=== PATIENT | female | born 1985 | race Two or more races ===

== ENCOUNTER 2019-03-03 20:28 | Inpatient (IN) | payer BC ==
[~2019-03-03] VITALS: Ht 165.1 cm; Wt 66.7 kg
--- NOTE | 2019-03-03 20:46 | NUR ---
patient brought in by ambulance. According to report, patient was found at home with empy medication bottles of lorazepam, effexor and propanolol at bedside with empty wine bottle. Upon arrival, patietn vital signs are the following: BP 121/78, HR 75, spo2 98%, RR 15. patient is confused but responsive to verbal stimuli. patient stated verbally "I want to . I want to fucking ." Dr. Anderson at bedside for evaluation of the patient. patient boyfriend at bedside.
--- NOTE | 2019-03-03 20:49 | NUR ---
Contacted posion control
--- NOTE | 2019-03-03 20:51 | NUR ---
business enterprise officer at bedside to speak to the patient.
[2019-03-03] MEDS ORDERED: IV NORMAL SALINE 1000 ML BAG IV ONE (21:00)
--- NOTE | 2019-03-03 21:05 | NUR ---
security at bedside for stand by 1:1 sitter
--- NOTE | 2019-03-03 21:12 | NUR ---
Called posion control. Spoke to Vi. Instructed to monitor for hypotension,hypoglycemia,place on seizure precaution.
--- NOTE | 2019-03-03 21:14 | NUR ---
SARAH [id number] [place] [facility] into interview patient.
[2019-03-03 21:16] LABS: BASOPHILS # (AUTO) 0.1 K/uL (0.0-8.0); EOSINOPHILS # (AUTO) 0.1 K/uL (0.0-0.7); EOSINOPHILS % (AUTO) 0.6 % (0.0-7.0); HEMATOCRIT 39.9 % (31.2-41.9); HEMOGLOBIN 13.5 g/dL (10.9-14.3); LYMPHOCYTES # (AUTO) 3.3 K/uL (20.0-40.0); LYMPHOCYTES % (AUTO) 38.3 % (20.5-51.5); MEAN CORPUSCULAR HEMOGLOBIN 32.5 uug (24.7-32.8); MEAN CORPUSCULAR HGB CONC 34 g/dL (32.3-35.6); MEAN CORPUSCULAR VOLUME 96.2 fL (75.5-95.3); MONOCYTES # (AUTO) 0.7 K/uL (2.0-10.0); MONOCYTES % (AUTO) 8.2 % (0.0-11.0); NEUTROPHILS # (AUTO) 4.5 K/uL (1.8-8.9); NEUTROPHILS % (AUTO) 51.9 % (38.5-71.5); PLATELET COUNT (AUTO) 404 K/uL (179-408); RED BLOOD CELL COUNT(AUTO) 4.15 MIL/uL (3.63-4.92); WHITE BLOOD COUNT (AUTO) 8.7 K/uL (3.8-11.8)
[2019-03-03 21:20] LABS: CARBON DIOXIDE 26 mmol/L (21-32); CHLORIDE 104 mmol/L (98-107); CREATININE 0.7 mg/dL (0.6-1.3); GLUCOSE 101 mg/dL (74-106); POTASSIUM 3.5 mmol/L (3.5-5.1); UREA NITROGEN, BLOOD 11 mg/dL (7-18)
--- NOTE | 2019-03-03 21:25 | NUR ---
patient removed IV. New IV has been placed. R AC 20G
[2019-03-03 21:27] LABS: ACETAMINOPHEN < 2.0 ug/mL (10-30); ALANINE AMINOTRANSFERASE 28 U/L (14-59); ALKALINE PHOSPHATASE 85 U/L (50-136); ASPARTATE AMINOTRANSFERASE 20 U/L (15-37); BILIRUBIN,DIRECT 0.1 mg/dL (0.0-0.2); BILIRUBIN,TOTAL 0.1 mg/dL (0.2-1.0); CREATINE KINASE, TOTAL 87 U/L (26-192); TOTAL PROTEIN, SERUM 7.7 g/dL (6.4-8.2)
[2019-03-03 21:38] LABS: ETHANOL 302 MG/DL (0-0)
--- NOTE | 2019-03-03 21:56 | NUR ---
critical lab reported to MD: ETOH 0.30 and Lactic Acid of 2.0. Dr. Justin naranjo.
[2019-03-03 22:19] LABS: *BILIRUBIN,URIN NEGATIVE (NEGATIVE); *CLARITY,URINE CLEAR (CLEAR); *COLOR,URINE YELLOW (YELLOW); *KETONES,URINE NEGATIVE (NEGATIVE); *URINE HCG, QUAL NEGATIVE (NEGATIVE); *UROBILINOGEN,URINE 0.2 E.U./dl (NORMAL); LEUKOCYTE ESTERASE ,URINE NEGATIVE (NEGATIVE); NITRITE, URINE NEGATIVE (NEGATIVE); UGLUCOSE NEGATIVE (NEGATIVE)
[2019-03-03 22:24] LABS: *BLOOD, URINE TRACE (NEGATIVE)
[2019-03-03 22:27] LABS: BACTERIA,URINE FEW /HPF (NONE SEEN); RBC,URINE 0-3 /HPF (0-3); SQUAMOUS EPITHELIAL CELL,UR FEW /HPF (NONE SEEN); WBC,URINE 0-3 /HPF (0-3)
[2019-03-03] MEDS ORDERED: GLUCAGON,HUMAN RECOMBINANT 1 MG VIAL ONE ×5 (23:08→23:33)
[2019-03-03] MEDS ORDERED: GLUCAGON,HUMAN RECOMBINANT 1 MG VIAL IVP ONE (23:15)
[2019-03-03] MEDS ORDERED: GLUCAGON HUMAN RECOMBINANT IVP ONE (23:15)
[2019-03-03] MEDS ORDERED: NORMAL SALINE IVP ONE (23:15)
--- NOTE | 2019-03-03 23:16 | NUR ---
patient blood pressre: 92/48. patient repositioned with legs elevated, [place]. Patient able to open eyes to verbal resposnse.
[2019-03-03] MEDS ORDERED: IV NS 1000 ML 1,000 ML IV ONE (23:30)
[2019-03-04] VITALS (13 sets, daily range): BP systolic 92–141; BP diastolic 45–99
--- NOTE | 2019-03-04 00:18 | NUR ---
Norma from poison control called back. States that patient should be hypotensive and bradycardia at same time to started on glucagon drip or patient is symptomatic. Dr Justin naranjo.
--- NOTE | 2019-03-04 00:28 | NUR ---
Paged Eppic panel. Waiting for Dr Alexander to call back.
[2019-03-04] MEDS ORDERED: propranolol PO (00:45)
[2019-03-04] MEDS ORDERED: lorazepam PO (00:45)
[2019-03-04] MEDS ORDERED: effexor PO (00:45)
--- NOTE | 2019-03-04 01:12 | NUR ---
report given to DAILY Dozier.
[2019-03-04] MEDS ORDERED: DEXTROSE 50% 50 ML DISP.SYRIN ONE (01:23)
[2019-03-04] MEDS ORDERED: SODIUM CHLORIDE 4 MEQ/ML VIAL 154 MEQ in IV 10% DEXTROSE 1,000 ML IV PRN (01:30)
[2019-03-04] MEDS ORDERED: DEXTROSE 50% 50 ML DISP.SYRIN IV ONE (01:30)
[2019-03-04] MEDS ORDERED: IV 10% DEXTROSE 1,000 ML IV PRN ×2 (01:45→03:00)
--- NOTE | 2019-03-04 01:55 | NUR ---
patient transferred to ICU department with AMANDA status. patient is in stable condition and VSS.
--- NOTE | 2019-03-04 02:00 | NUR ---
Admitted a 34 y.o female patient from ER via yordan DX: OD. AMANDA status. AAO, appears withdrawn. To CCU2. surveillance monitor: SR. Assessment done. ALEKSANDRA etienne; CCU routine and visiting hours/rules discussed with him. Verbalized understanding. Addendum: 03/04/19 at 0413 by EL OVERTON RN Amended: Links added.
--- NOTE | 2019-03-04 02:27 | NUR ---
Cxkjnoozj=520; IVF D10W at 60 ml/H to RAC IV site.
[2019-03-04] MEDS ORDERED: ONDANSETRON 4 MG/2 ML VIAL IV PRN (02:30)
[2019-03-04] MEDS ORDERED: LORAZEPAM 2 MG/1 ML VIAL IV PRN (02:30)
[2019-03-04] MEDS ORDERED: ZIPRASIDONE MESYLATE 20 MG VIAL IM PRN (02:30)
--- NOTE | 2019-03-04 02:30 | NUR ---
Dr. Alexander called; will enter orders. informed of on going IVF from ER and latest accucheck.
--- NOTE | 2019-03-04 04:39 | NUR ---
Norma from Poison control called; updated of patient's condition.
[2019-03-04] MEDS: BLOOD SUGAR DIAGNOSTIC 1 EACH STRIP VI SCH ×7 (04:51→21:39)
--- NOTE | 2019-03-04 05:00 | NUR ---
Up to BS with minimal assist. Voided clear kindra urine.
[2019-03-04 05:08] LABS: BASOPHILS # (AUTO) 0.1 K/uL (0.0-8.0); BASOPHILS % (AUTO) 1.3 % (0.0-2.0); EOSINOPHILS % (AUTO) 0.5 % (0.0-7.0); HEMATOCRIT 35.6 % (31.2-41.9); HEMOGLOBIN 12.3 g/dL (10.9-14.3); LYMPHOCYTES # (AUTO) 3.4 K/uL (20.0-40.0); MEAN CORPUSCULAR HEMOGLOBIN 32.8 uug (24.7-32.8); MEAN CORPUSCULAR HGB CONC 35 g/dL (32.3-35.6); MEAN CORPUSCULAR VOLUME 94.7 fL (75.5-95.3); MONOCYTES # (AUTO) 0.7 K/uL (2.0-10.0); MONOCYTES % (AUTO) 9.3 % (0.0-11.0); NEUTROPHILS # (AUTO) 2.9 K/uL (1.8-8.9); NEUTROPHILS % (AUTO) 40.9 % (38.5-71.5); PLATELET COUNT (AUTO) 364 K/uL (179-408); RED BLOOD CELL COUNT(AUTO) 3.76 MIL/uL (3.63-4.92); WHITE BLOOD COUNT (AUTO) 7.1 K/uL (3.8-11.8)
[2019-03-04 05:21] LABS: ALANINE AMINOTRANSFERASE 25 U/L (14-59); ALKALINE PHOSPHATASE 77 U/L (50-136); ASPARTATE AMINOTRANSFERASE 15 U/L (15-37); BILIRUBIN,TOTAL < 0.1 mg/dL (0.2-1.0); CARBON DIOXIDE 25 mmol/L (21-32); CHLORIDE 106 mmol/L (98-107); CREATININE 0.6 mg/dL (0.6-1.3); GLUCOSE 102 mg/dL (74-106); MAGNESIUM 1.7 mg/dL (1.8-2.4); PHOSPHOROUS 2.6 mg/dL (2.5-4.9); POTASSIUM 3.8 mmol/L (3.5-5.1); TOTAL PROTEIN, SERUM 6.7 g/dL (6.4-8.2); UREA NITROGEN, BLOOD 7 mg/dL (7-18)
[2019-03-04 05:40] LABS: *AMPHETAMINE, URINE NEGATIVE (NEGATIVE); *BARBITURATE, URINE NEGATIVE (NEGATIVE); *CANNABINOID, URINE NEGATIVE (NEGATIVE); *COCCAINE, URINE NEGATIVE (NEGATIVE); *OPIATE, URINE NEGATIVE (NEGATIVE); *PHENCYCLIDINE SCREEN,URINE NEGATIVE (NEGATIVE)
[2019-03-04] MEDS: PANTOPRAZOLE SODIUM 40 MG TABLET.DR PO SCH (06:36)
--- NOTE | 2019-03-04 06:52 | NUR ---
Sleeping, easily arouses to name. BP stable. Monitor : SR-SB rate 58-60's.
--- NOTE | 2019-03-04 08:28 | NUR ---
Marleny 93, no coverage. Addendum: 03/04/19 at 0828 by URVASHI HAYES RN Amended: Links added.
[2019-03-04] MEDS: THIAMINE HCL 100 MG TABLET PO SCH (09:00)
[2019-03-04] MEDS: FOLIC ACID 1 MG TABLET PO SCH (09:00)
--- NOTE | 2019-03-04 09:00 | NUR ---
A call to Crisis Team Cuff Runner /Oncology Rn Bob Kowalski report given, and as stated by him " I'll speak to [facility] Criminology Professor, Director, I'll call to let you know if I'll see this patient today". Awaiting call back.
--- NOTE | 2019-03-04 09:05 | NUR ---
seen by Dr Lloyd. with new orders. including 1:1 seng. Nursing supervisor sunglasses informed Addendum: 03/04/19 at 0906 by URVASHI HAYES RN Amended: Links added.
--- NOTE | 2019-03-04 10:30 | NUR ---
magnesium 1.7, replaced with 2 gms mag sulfate Addendum: 03/04/19 at 1133 by URVASHI HAYES RN Amended: Links added.
[2019-03-04] MEDS: MAGNESIUM SULFATE/D5W 100 ML IV SCH ×2 (10:38→11:43)
--- NOTE | 2019-03-04 11:00 | NUR ---
seen by Bob, Crisis Intervention. patient placed on 5150 hold. will be seen by Dr Bansal. all belongings taken from room. Belonging list updated. Addendum: 03/04/19 at 1130 by URVASHI HAYES RN Amended: Links added. Addendum: 03/04/19 at 1133 by URVASHI HAYES RN Amended: Links added.
--- NOTE | 2019-03-04 12:28 | NUR ---
jonathan 115/no coverage Addendum: 03/04/19 at 1228 by URVASHI HAYES RN Amended: Links added.
--- NOTE | 2019-03-04 14:51 | NUR ---
Call to Dr Bansal for psyc consult. will see in am Addendum: 03/04/19 at 1451 by URVASHI HAYES RN Amended: Links added. Addendum: 03/04/19 at 1500 by URVASHI HAYES RN Amended: Links added.
--- NOTE | 2019-03-04 14:59 | NUR ---
call to Dr Lloyd re: patient plan to transfer out of CCU. called back and ordered to transfer patient to tele with 1:1 sitter. Addendum: 03/04/19 at 1500 by URVASHI HAYES RN Amended: Links added.
--- NOTE | 2019-03-04 16:01 | NUR ---
OLIMPIAAR report given to Eddie Addendum: 03/04/19 at 1601 by URVASHI HAYES RN Amended: Links added.
--- NOTE | 2019-03-04 16:03 | NUR ---
RAYMUNDO report given to GosiaJose Antonio Addendum: 03/04/19 at 1603 by URVASHI HAYES RN Amended: Nara added. Addendum: 03/04/19 at 1605 by URVASHI HAYES RN Amended: Nara added. Addendum: 03/04/19 at 1607 by URVASHI HAYES RN Amended: Links added.
--- NOTE | 2019-03-04 16:05 | NUR ---
patient seems to understand medical regimen Addendum: 03/04/19 at 1607 by URVASHI HAYES RN Amended: Links added.
--- NOTE | 2019-03-04 16:25 | NUR ---
RECEIVED PATIENT FROM ICU VIA WHEELCHAIR, DIAGNOSE WITH OVERDOSE. ON 5150 DUE TO DANGER TO SELF WITH 1:1 SITTER. DENIES AND SI/HI AT THIS TIME. NO ACUTE DISTRESS NOTED, IV ON RIGHT AC INTACT AND PATENT. PATIENT AMBULATORY AND BRP, NO C/O PAIN AT THIS TIME. SAFETY AND COMFORT PROVIDED AT ALL TIMES. WILL CONTINUE TO MONITOR.
--- NOTE | 2019-03-04 18:31 | NUR ---
Patient in bed sitting quietly in her bed with 1:1 sitter for safety. patient denies any SI/HI noted at this time. no s/s of acute distress noted, safety and comfort provided at all times. kept clean and dry at all times. all needs attended, call light within reached.
[2019-03-05] VITALS: BP 110/85
[2019-03-05 04:00] VITALS: BP 132/97
--- NOTE | 2019-03-05 05:23 | NUR ---
Patient slept intermittently throughout the night, total of 5.5hours. Patient asked about when she can resume her effexor, explained to patient that we are awaiting recommendation from psychiatrist regarding her medications and that doctor will come see her tomorrow. No other complaints were made. Attended all needs. Ensured safety and comfort.
[2019-03-05] MEDS: ACETAMINOPHEN 325 MG TABLET PO PRN ×2 (06:21→09:51)
[2019-03-05] MEDS: PANTOPRAZOLE SODIUM 40 MG TABLET.DR PO SCH (06:27)
[2019-03-05] MEDS: BLOOD SUGAR DIAGNOSTIC 1 EACH STRIP VI SCH ×4 (06:32→20:39)
[2019-03-05 06:58] LABS: CREATININE 0.8 mg/dL (0.6-1.3); MAGNESIUM 1.9 mg/dL (1.8-2.4); POTASSIUM 4.2 mmol/L (3.5-5.1)
[2019-03-05 08:00] VITALS: BP 122/86
[2019-03-05] MEDS ORDERED: VENLAFAXINE XR 150 MG CAP.SR.24H PO SCH ×2 (09:00→09:15)
[2019-03-05] MEDS ORDERED: LORAZEPAM 1 MG TABLET PO PRN (09:15)
[2019-03-05] MEDS: THIAMINE HCL 100 MG TABLET PO SCH (09:48)
[2019-03-05] MEDS: FOLIC ACID 1 MG TABLET PO SCH (09:48)
[2019-03-05] MEDS ORDERED: IBUPROFEN 600 MG TABLET PO ONE (12:15)
[2019-03-05 16:00] VITALS: BP 132/96
--- NOTE | 2019-03-05 19:00 | NUR ---
Patient in bed resting, patient will be discharge to [facility], DION removed. continue on 1:1 sitter. kept clean and dry at all times. safety and comfort provided at all times. will continue to monitor.
[2019-03-05 20:41] VITALS: BP 126/94
--- NOTE | 2019-03-05 22:30 | NUR ---
PT DISCHARGED. DISCHARGE PACKET GIVEN TO RAGHAVENDRA NGUYEN OF [facility]. PT IN NO ACUTE DISTRESS. ID BRACELET TAKEN OFF AND IV TAKEN OFF. REPORT GIVEN TO REJI AMBROSIO AT [facility]. PT VITAL SIGNS WITHIN NORMAL LIMIT. PT STABLE.BELONGINGS GIVEN TO THE PT.
== END 2019-03-05 22:30 | DRG 918 ==
LOC: ER 20:30 → CCU 03-04 01:14 → TELE3 03-04 16:25 → MEDSURG3 03-05 20:17
PROVIDERS: ADMIT Internal Medicine; ATTEND Internal Medicine
DX: T44.7X2A Poisoning by beta-adrenoreceptor antagonists, intentional self-harm, initial encounter (principal); F33.2 Major depressive disorder, recurrent severe without psychotic features; F10.239 Alcohol dependence with withdrawal, unspecified; T51.0X2A Toxic effect of ethanol, intentional self-harm, initial encounter; T42.4X2A Poisoning by benzodiazepines, intentional self-harm, initial encounter; Y92.019 Unspecified place in single-family (private) house as the place of occurrence of the external cause; Y90.8 Blood alcohol level of 240 mg/100 ml or more; Z98.82 Breast implant status; F41.9 Anxiety disorder, unspecified; F43.10 Post-traumatic stress disorder, unspecified
CPT/HCPCS: 36415; 70030-TC; 80307; 83605; 83735; 84100; 84443; 84703; 85025; 85730; 93005; A4663; C1887; G0378; G0480; G0480-TC; J1610; J2060; J3475; J3486; J3490; J7030; J7131